=== PATIENT | male | born 1960 | race Caucasian/White ===

== ENCOUNTER 2017-07-09 17:29 | Emergency (ER) | payer BC ==
[~2017-07-09] VITALS: Ht 177.8 cm; Wt 129.2 kg
[~2017-07-09 17:29] MED LIST: AMLODIPINE BESYL5 MG PO; ASPIR 8181 M1 PO; ATIVAN0.5 MG PO; ATORVASTATIN CA10 MG PO; ATORVASTATIN CA20 MG PO; BUPROPION XL150 MG PO; CLARITIN,ALAVAR10 MG PO; DAILY VITE1 EAC1 PO; DULOXETINE HCL30 MG PO; DURICEF1 GM PO; FENOFIBRATE145 M1 PO; FLONASE16 G1 BOTH NARES; FLORASTOR250 MG PO; FUROSEMIDE20 MG PO; INVOKANA300 MG PO; JARDIANCE25 MG PO; KRILL OIL500 MG PO; LISINOPRIL20 MG PO; LISINOPRIL40 MG PO; LITE COAT ASPI325 M1 PO; METFORMIN HCL1000 MG PO; VICTOZA0.6 MG/0.1 SC; ZANAFLEX2 M1 PO; ZOLPIDEM TARTRA10 MG PO
[2017-07-09 18:51] LABS: HEMATOCRIT 41.9 % (38.0-50.0); HEMOGLOBIN 13.9 G/DL (12.5-16.6); MCH 26.6 PG (29.0-34.0); MCHC 33.2 G/DL (30.0-36.0); MCV 80.1 FL (86-99); PLATELET COUNT 306 K/uL (156-360); RBC DIS.WIDTH-CV 13.8 % (11.8-14.6); RBC DIS.WIDTH-SD 40.1 % (39-53); RED BLOOD COUNT 5.23 M/uL (4.00-5.50); WHITE BLOOD COUNT 10.4 K/uL (4.1-10.2)
[2017-07-09 18:59] LABS: CHLORIDE 101 mEq/L (99-109); POTASSIUM 3.7 mEq/L (3.7-5.4); SODIUM 137 mEq/L (136-147)
[2017-07-09 19:01] LABS: GLUCOSE 161 mg/dL (70-99)
[2017-07-09 19:05] LABS: GFR ESTIMATE (CALCULATED) > 59 mL/min/ (58.99-99999); UREA NITROGEN (BUN) 23 mg/dL (9-23)
[2017-07-09 20:06] VITALS: BP 170/98
== END 2017-07-09 20:06 | disposition home or self-care (01) ==
LOC: EME 17:29
PROVIDERS: Nurse Practitioner Family
DX: I10 Essential (primary) hypertension (principal); E11.9 Type 2 diabetes mellitus without complications; Z87.891 Personal history of nicotine dependence; Z95.1 Presence of aortocoronary bypass graft; Z96.651 Presence of right artificial knee joint; Z79.84 Long term (current) use of oral hypoglycemic drugs; Z88.5 Allergy status to narcotic agent; Z88.8 Allergy status to other drugs, medicaments and biological substances
CPT/HCPCS: 80048; 85027; 93005; 99281; 99284